=== PATIENT | female | born 1985 | race Caucasian/White ===

== ENCOUNTER → 2020-06-25 10:34 | Outpatient (BNVA) | payer OTHER, SELFPAY | PROVIDERS: PCP Nurse Practitioner Family | DX: E66.9 Obesity, unspecified (principal); Z68.35 Body mass index [BMI] 35.0-35.9, adult | CPT/HCPCS: 80053; 85025 ==

== ENCOUNTER → 2020-07-01 13:19 | Outpatient (BNVA) | payer OTHER, SELFPAY | PROVIDERS: PCP Nurse Practitioner Family; Visit Provider Family Medicine | DX: E66.9 Obesity, unspecified (principal) | CPT/HCPCS: 84443 ==